=== PATIENT | female | born 1955 | race Caucasian/White ===

== ENCOUNTER → 2019-02-06 09:45 | Outpatient (CLI) | payer BC, SELFPAY ==
--- NOTE | 2019-02-06 | DI.US.S_ITS ---
ULTRASOUND OF LEFT BREAST: 02/06/2019 CLINICAL: Palpable left breast lump by physician. Comparison is made to exams dated: 02/06/2019 mammogram - [facility], 03/13/2018 mammogram, 03/07/2017 mammogram, and 02/16/2016 mammogram - [facility]. Real-time ultrasound of the left breast was performed. Vazquez scale images of the real-time examination were reviewed. No abnormalities were seen sonographically in the left breast. IMPRESSION: NEGATIVE There is no sonographic evidence of malignancy. There is no abnormality seen in the left breast to correspond with the area of clinical concern and palpable abnormality in the upper outer quadrant which is consistent with normal fibroglandular tissue. Recommend clinical follow up for persistent or worsening symptoms. A 1 year screening mammogram is recommended. This exam was interpreted at Station ID: [id number]. Electronically Signed By: Gerson Nava M.D. aty/:02/06/2019 11:21:44 letter sent: Normal Exam Ultrasound BI-RADS: 1 Negative
--- NOTE | 2019-02-06 | DI.MG.S_ITS ---
BILATERAL DIGITAL DIAGNOSTIC MAMMOGRAM 3D/2D: 02/06/2019 CLINICAL: Left breast thickening. Comparison is made to exams dated: 03/13/2018 mammogram, 03/07/2017 mammogram, and 02/16/2016 mammogram - [facility]. The tissue of both breasts is extremely dense, which lowers the sensitivity of mammography. There are benign calcifications in both breasts that are not significantly changed. There is a biopsy site marker on the left breast. No significant masses, calcifications, or other findings are seen in either breast. IMPRESSION: INCOMPLETE: NEEDS ADDITIONAL IMAGING EVALUATION There is no abnormality seen in the left breast to correspond with the area of clinical concern and palpable abnormality in the upper outer quadrant, however, ultrasound is recommended. The recommended breast ultrasound is scheduled to immediately follow this examination. This exam was interpreted at Station ID: [id number]. NOTE: For mammograms, a report in lay terms will be sent to the patient. Approximately 15% of breast malignancies will not be visualized mammographically. In the management of a palpable breast mass, a negative mammogram must not discourage biopsy of a clinically suspicious lesion. Electronically Signed By: Gerson Nava M.D. aty/:02/06/2019 10:50:26 ACR BI-RADS Category 0: Incomplete 3340F
== END ==
PROVIDERS: PCP Nurse Practitioner Family; Visit Provider Nurse Practitioner Family
DX: N63.20 Unspecified lump in the left breast, unspecified quadrant (principal)
CPT/HCPCS: 76642; 77066; G0279

== ENCOUNTER → 2020-04-10 11:11 | Outpatient (CLI) | payer BC, SELFPAY ==
--- NOTE | 2020-04-10 | DI.MG.S_ITS ---
BILATERAL DIGITAL SCREENING MAMMOGRAM 3D/2D WITH CAD: 04/10/2020 CLINICAL: Routine screening. Comparison is made to exams dated: 02/06/2019 mammogram - [facility], 03/13/2018 mammogram, and 03/07/2017 mammogram - [facility]. The tissue of both breasts is extremely dense, which lowers the sensitivity of mammography. Current study was also evaluated with a Computer Aided Detection (CAD) system. There is a benign calcification in both breasts. There also is a biopsy clip in the left breast. No significant masses, calcifications, or other findings are seen in either breast. There has been no significant interval change. IMPRESSION: BENIGN There is no mammographic evidence of malignancy. A 1 year screening mammogram is recommended. This exam was interpreted at Station ID: [id number]. NOTE: For mammograms, a report in lay terms will be sent to the patient. Approximately 15% of breast malignancies will not be visualized mammographically. In the management of a palpable breast mass, a negative mammogram must not discourage biopsy of a clinically suspicious lesion. Electronically Signed By: Ashley joyce/helen:04/10/2020 11:36:12 letter sent: Normal Exam ACR BI-RADS Category 2: Benign Finding(s) 3342F
== END ==
PROVIDERS: PCP Nurse Practitioner Family; Referring Provider Nurse Practitioner Family; Visit Provider Nurse Practitioner Family
DX: Z12.31 Encounter for screening mammogram for malignant neoplasm of breast (principal)
CPT/HCPCS: 77063; 77067